=== PATIENT | male | born 1995 | race African-American/Black ===

== ENCOUNTER 2019-09-30 17:34 | Emergency (ER) | payer OTHER ==
--- NOTE | 2019-09-30 17:45 | PDOC ---
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 He notes he was playing with the knife and accidentally sliced his finger. Denies any substance use, did not take any med ication for pain, states he does have pain only when trying to bend the finger. Notes mild swelling, did not lose a significant amount of blood per his report, able to bend the finger but this causes some discomfort. He cannot recall the date of his last Tdap. Denies numbness, tingling, or weakness to the finger. Right hand dominant. Past History - Medical History Allergies/Adverse Reactions: Allergies Allergy/AdvReac Type Severity Reaction Status Date / Time No Known Allergies Allergy Verified 09/30/19 17:37 Home Medications: Ambulatory Orders Cephalexin Monohydrate [Keflex -] 500 mg PO BID #10 capsule 09/30/19 - Psycho-Social/Smoking History Smoking Status: No Smoking History: Never smoked Number of Cigarettes Smoked Daily: 0 Review of Systems - Review of Systems Able to Perform ROS?: Yes Comments:: 09/30/19 17:51 GEN: no fever, chills, generalized weakness, or malaise HEENT: no ear pain, eye pain, throat pain or swelling, nosebleed, vision change, or loose teeth SKIN: right index finger lacerations, otherwise no abrasions, or bruises CV: no chest pain, palpitations, or LOC RESP: no cough or SOB GI: no abdominal pain, nausea, vomiting, or black/bloody stool : no hematuria or flank pain/bruising MSK: no muscle weakness, muscle pain, joint pain, or joint swelling NECK/BACK: no neck pain, back pain, or trauma reported NEURO: no headache, seizure, numbness, tingling, focal weakness, or incontinence PSYCH: no suicidality, homicidality, or substance use *Physical Exam - Vital Signs Initial Vital Signs Temp Pulse Resp BP Pulse Ox 98.3 F 70 20 112/73 100 08/07/20 17:36 09/30/19 17:36 09/30/19 17:36 09/30/19 17:36 09/30/19 17:36 - Physical Exam 09/30/19 17:45 GENERAL: well-appearing, very tall, pleasant adult male POC, making jokes and in good humor, A/Ox4, no distress, answers questions appropriately, accompanied by significant other at bedside HEENT: PERRLA, EOMI, moist mucous membranes NECK/BACK: no midline ttp, no spinal step-off or deformity, no hematoma, full ROM, neck supple CARDIOVASCULAR: regular rate/rhythm, no MGR, strong peripheral pulses, capillary refill <2 seconds, extremities wwp, no edema LUNGS/RESPIRATORY: no respiratory distress, CTAB GI/ABDOMEN: symmetric [id number], normoactive BS, soft, no ttp, no midline pulsatile masses MSK/EXTREMITIES: bilateral hands with r/m/u nerve distributions intact both motor and sensory, 5/5 strength flexion and extension to right index finger, otherwise no muscle atrophy, no acute deformity SKIN: one 3 cm and one 2.7 cm laceration to the right radial index finger which are oblique in angle to the finger, no exposed tendon or ligament or sheath material, no obvious nv injury, no pulsating or oozing blood, cap refill <2 seconds bilaterally all five digits, skin is otherwise warm and dry, no pallor, no jaundice, no rash, no pathologic-appearing bruising, no skin breakdown, no cuts, no lesions NEUROLOGICAL: GCS 15, CN II-XII grossly intact, 5/5 strength proximally and distally, no facial droop Procedures - Laceration/Wound Repair Right Lateral Finger 2nd digit Wound Length: 5.0 to 7.5 cm Wound Explored: clean Wound's Depth, Shape: linear Irrigated w/ Saline: Yes Anesthesia: 1% Lidocaine Wound Repaired With: Sutures Suture Size/Type: 5:0 Layer Closure: No Sterile Dressing Applied: Yes Sling Applied: No Medical Decision Making - Medical Decision Making 09/30/19 17:57 Pt p/w lacerations to the right index finger. No e/o tendon, ligament, or bony injury. No obvious FB or debris. Last tDaP was ___ Initial Vital Signs Temp Pulse Resp BP Pulse Ox 98.3 F 70 20 112/73 100 09/30/19 17:36 09/30/19 17:36 09/30/19 17:36 09/30/19 17:36 09/30/19 17:36 DDX IBNLT: Most likely simple skin/soft tissue laceration, less likely any tendon/ligament involvement, bony involvement, larger blood vessel injury, retained FB, wound contamination with risk for infection, etc. W/U ordered: XR to r/o FB and bony involvement TX ordered: tDaP update, abx dose 500 mg Keflex Laceration numbed, cleaned, repaired without issue as noted in Procedures section. Hemostasis achieved, good approximation, Bacitracin applied and wound dressed, finger splint loosely applied. The Pts laceration has been repaired without issue, ppx given as indicated. They do not require abx for this laceration. E-Rx is sent to their pharmacy for abx and they will take the whole course as Rx. Workup is not concerning for emergency-level pathology at this time. The Pt is appropriate for discharge with close outpatient follow up. They are comfortable with this plan and will follow up here in the ED in 3days for wound check. Specific return precautions are discussed and they will come back to the ER if necessary Discharge - Discharge Information Problems reviewed: Yes Clinical Impression/Diagnosis: Finger laceration Qualifiers: Encounter type: initial encounter Finger: index finger Damage to nail status: without damage Foreign body presence: without foreign body Laterality: right Qualified Code(s): S61.210A - Laceration without foreign body of right index finger without damage to nail, initial encounter Condition: Stable Disposition: HOME - Admission No - Additional Discharge Information Prescriptions: Cephalexin Monohydrate [Keflex -] 500 mg PO BID #10 capsule - Follow up/Referral Referrals: [facility] [place] [facility] [Provider Group] - Patient Discharge Instructions Patient Printed Discharge Instructions: DI for Laceration Repair Additional Instructions: You were seen in the ER for lacerations to your right index finger. We did an exam, cleaned and repaired the laceration, and made sure your tetanus vaccination was up to date. We gave you the first dose of antibiotics here in the ER. After our assessment, we do not believe you are having a medical emergency at this time, and we believe you are safe to go home. Please read the information in this packet on how to care for your laceration. Keep the dressing on your wound for 24 hours and keep this dressing clean and dry. After 24 hours, you can take the dressing off and you can shower and get the wound wet, but do not scrub the wound and do not soak it in water. Do not go swimming or take a bath or submerge the wound in standing water. Put a thin layer of antibiotic ointment on the wound once in the morning and once in the evening. Please follow up with your primary care provider to have the sutures removed, or return here to the ER to have them removed. If you have any new or worsening symptoms, especially increasing pain and redness to the area or other signs of infection like fever, please come back to the ER at any time (24 hours a day). If you are having severe or life threatening symptoms, or symptoms that make it unsafe to drive or have someone drive you, please call 911. 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 Take this medication exactly as prescribed. If you do not take this, it puts you at higher risk of dangerous infection to the hand. Come back to the ER immediately for any signs of infection like worsening pain, pus drainage, worsening redness, fever, etc. Follow up with your PCP on Thursday to have a wound check, and again next (6 days from now) to see if the sutures can be removed. If for any reason you cannot follow up with your PCP, come back to the ER for the wound check on Thursday and the suture removal on . - Post Discharge Activity
[2019-09-30 17:57] VITALS: BP 112/73; PULSE 70; TEMP 98.3; BMI 23.0
[2019-09-30] MEDS ORDERED: DIPHTH,PERTUSS(ACELL),TET 0.5 ML DISP.SYRIN IM ONE ×2 (17:59→18:04)
[2019-09-30] MEDS ORDERED: CEPHALEXIN MONOHYDRATE 500 MG CAPSULE (UD) PO ONE (17:59)
[2019-09-30] MEDS ORDERED: CEPHALEXIN MONOHYDRATE 500 MG CAPSULE (UD) ONE (18:03)
[2019-09-30] MEDS ORDERED: SODIUM CHLORIDE 0.9% 500 ML INFUS.BAG IV ONE (18:35)
== END 2019-09-30 19:09 | disposition home or self-care (01) ==
LOC: FER 17:34
PROC: 0HQFXZZ Repair Right Hand Skin, External Approach (ICD-10-PCS; principal; 2019-09-30)
PROC: 3E0234Z Introduction of Serum, Toxoid and Vaccine into Muscle, Percutaneous Approach (ICD-10-PCS; 2019-09-30)
DX: S61.210A Laceration without foreign body of right index finger without damage to nail, initial encounter (principal)
CPT/HCPCS: 90715; 99284-25

== ENCOUNTER 2019-10-03 10:50 | Emergency (ER) | payer OTHER ==
[2019-10-03 11:05] VITALS: BP 107/60; PULSE 85; TEMP 98.2; BMI 23.0
--- NOTE | 2019-10-03 11:05 | PDOC ---
Suture Removal/Wound Check HPI - History of Present Illness Chief Complaint: Suture/Staple Removal(Here) Stated Complaint: SUTURE REMOVAL Time Seen by Provider: 10/03/19 10:53 History Source: Yes: Patient Exam Limitations: Yes: No Limitations Treated at: [facility] ED Date of Last ED visit: 09/30/19 - Previous ED Treatment Type of procedure performed on last visit: Yes: Laceration Repair - Onset of Previous Treatment Comment:: 24 yo M presents 3 days s/p laceration repair of R index finger. Has been dressing it with gauze, wearing a splint. However, he fell after the sutures were placed and one of them came out. He also was concerned that he saw yellow discharge on his gauze. Denies any new swelling, redness, fever, rash. It was swollen at time of repair, but has been improving. Taking abx as prescribed. Past History - Medical History Allergies/Adverse Reactions: Allergies Allergy/AdvReac Type Severity Reaction Status Date / Time No Known Allergies Allergy Verified 09/30/19 17:37 Home Medications: Ambulatory Orders Cephalexin Monohydrate [Keflex -] 500 mg PO BID #10 capsule 09/30/19 COPD: No - Psycho-Social/Smoking History Smoking Status: No Smoking History: Never smoked Have you smoked in the past 12 months: No Number of Cigarettes Smoked Daily: 0 *Review of Systems - Review of Systems Able to Perform ROS?: Yes GENERAL/CONSTITUTIONAL: No fever or chills. No weakness. MUSCULOSKELETAL: No joint or muscle swelling or pain. No neck or back pain. SKIN: No rash. *Physical Exam - Physical Exam GENERAL: Awake, alert, and fully oriented, in no acute distress HEAD: No signs of trauma EXTREMITIES: R index finger with healing laceration, dry, no drainage. Small opening in the wound c/w missing suture, healing. Remainder of extremities with normal range of motion, no edema. No clubbing or cyanosis. No cords, erythema, or tenderness NEUROLOGICAL: Cranial nerves II through XII grossly intact. Normal speech, normal gait. Motor and sensation intact SKIN: Warm, dry, normal turgor, no rashes or lesions noted. Medical Decision Making - Medical Decision Making Patient brought the gauze with him to ED, drainage appears consistent with normal wound healing. No signs of infection. Return instructions given. Recommended that he keep a thin gauze dressing and the splint in place to allow it to heal as it has been. Discharge - Discharge Information Problems reviewed: Yes Clinical Impression/Diagnosis: Visit for wound check Condition: Stable Disposition: HOME - Follow up/Referral - Patient Discharge Instructions Patient Printed Discharge Instructions: Laceration Repair Additional Instructions: Please return between 10/10-10/12 to have your sutures removed. If you have swelling, redness, fever, drainage of pus, or any other concerning symptoms, return to the ER immediately. - Post Discharge Activity
== END 2019-10-03 11:24 | disposition home or self-care (01) ==
LOC: FER 10:50
DX: Z48.02 Encounter for removal of sutures (principal)
CPT/HCPCS: 99281-25

== ENCOUNTER 2019-10-10 17:05 | Emergency (ER) | payer OTHER ==
[2019-10-10 17:08] VITALS: BMI 23.8
[2019-10-10 17:13] VITALS: BP 108/69; PULSE 73; TEMP 98.3
--- NOTE | 2019-10-10 17:46 | PDOC ---
Documentation entered by Tomer Bettencourt SCRIBE, acting as scribe for Donya Bhardwaj MD. Donya Bhardwaj MD: This documentation has been prepared by the scribe, Tomer Bettencourt SCRIBE, under my direction and personally reviewed by me in its entirety. I confirm that the documentation accurately reflects all work, treatment, procedures, and medical decision making performed by me. History of Present Illness - General Chief Complaint: Suture/Staple Removal(Here) Stated Complaint: SUTURE REMOVAL History Source: Patient Exam Limitations: No Limitations - History of Present Illness Initial Comments: 10/10/19 17:32 The patient is a 24 year old male with a significant past medical history of ADD (not currently medicated) who presents to the emergency department to have stitches removed from his right index finger. The patient was here for stitches 09/30/2019 for evaluation of right index finger lacerations s/p accidentally cutting himself with a Sweet[employer] Knife while playing with it. He came to the ED 10/03/2019 because a stitch came out after he fell and he was concerned that he saw yellow discharge on his gauze. He also came to the ED 10/06/2019 because he thought his finger was infected. The patient is currently asymptomatic. The patient denies chest/abdominal/back pain, cough, and shortness of breath. Denies fever, chills, nausea, vomiting, and/or any GI symptoms. Denies any symptoms. Denies any other symptoms. Allergies: NKDA Social Hx: The patient reports smoking marijuana and occasionally consuming alcohol. Past History - Medical History Allergies/Adverse Reactions: Allergies Allergy/AdvReac Type Severity Reaction Status Date / Time No Known Allergies Allergy Verified 10/10/19 17:05 Home Medications: Ambulatory Orders NK [No Known Home Medication] 10/06/19 COPD: No - Psycho-Social/Smoking History Smoking Status: No Smoking History: Never smoked Have you smoked in the past 12 months: No Number of Cigarettes Smoked Daily: 0 - Substance Abuse Hx (Audit-C & DAST Scrn) How often the patient has a drink containing alcohol: Monthly or less Number of drinks the patient has on a typical day: 1 or 2 How often the patient has six or more drinks on one occasion: Never Score: In Men: 4 or > Positive; In Women: 3 or > Positive: 1 Screen Result (Pos requires Nsg. Audit-10AR): Negative In the last yr the pt used illegal drug/Rx for NonMed reason: Yes Score: Yes response is considered Positive: 1 Screen Result (Positive result requires Nsg. DAST-10): Positive Review of Systems - Review of Systems Able to Perform ROS?: Yes Comments:: 10/10/19 17:34 GENERAL/CONSTITUTIONAL: No fever or chills. No weakness. HEAD, EYES, EARS, NOSE AND THROAT: No change in vision. No ear pain or discharge. No sore throat. CARDIOVASCULAR: No chest pain or shortness of breath. RESPIRATORY: No cough, wheezing, or hemoptysis. GASTROINTESTINAL: No nausea, vomiting, diarrhea or constipation. GENITOURINARY: No dysuria, frequency, or change in urination. MUSCULOSKELETAL: No joint or muscle swelling or pain. No neck or back pain. SKIN: No rash NEUROLOGIC: No headache, vertigo, loss of consciousness, or change in strength/sensation. ENDOCRINE: No increased thirst. No abnormal weight change. HEMATOLOGIC/LYMPHATIC: No anemia, easy bleeding, or history of blood clots. ALLERGIC/IMMUNOLOGIC: No hives or skin allergy. All Other Systems: Reviewed and Negative *Physical Exam - Vital Signs Last Vital Signs Temp Pulse Resp BP Pulse Ox 98.3 F 73 16 108/69 100 10/10/19 17:05 10/10/19 17:05 10/10/19 17:05 10/10/19 17:05 10/10/19 17:05 - Physical Exam 10/10/19 17:24 GENERAL: Awake, alert, and fully oriented, in no acute distress HEAD: No signs of trauma EYES: PERRLA, EOMI, sclera anicteric, conjunctiva clear ENT: Auricles normal inspection, hearing grossly normal, nares patent, oropharynx clear without exudates. Moist mucosa NECK: Normal ROM, supple EXTREMITIES: Normal range of motion, no edema. No clubbing or cyanosis. wound on index finger well healed without drainage, erythema or increased warmth, no ttp NEUROLOGICAL: Cranial nerves II through XII grossly intact. Normal speech, normal gait Medical Decision Making - Medical Decision Making 10/10/19 17:44 24 yo M here for suture removal, wound healed, no signs concerning for infection. Sutures removed without complications. Patient tolerated procedure well. Plan: -d/c with return precautions, recommend cocoa butter to area and avoid sun exposure to decrease scarring, f/u PMD as needed This clinical encounter is taking place during a federal and state health care emergency attributable to the novel Vincent Virus pandemic. The [employer] of the Department of Health and Human Services has declared, pursuant to the Public Health Service Act 319F-3 (42 U.S.C. 247d-6d), that a covered persons activities related to medical countermeasures against COVID-19 will be immune from liability under Federal and State law. Discharge - Discharge Information Problems reviewed: Yes Clinical Impression/Diagnosis: Visit for suture removal Condition: Stable Disposition: HOME - Admission No - Follow up/Referral - Patient Discharge Instructions Patient Printed Discharge Instructions: DI for Suture Removal Additional Instructions: Return to the ED for new or worsening symptoms. You should follow up with your PMD as needed. - Post Discharge Activity
== END 2019-10-10 18:02 | disposition home or self-care (01) ==
LOC: FER 17:05
DX: Z48.02 Encounter for removal of sutures (principal)
CPT/HCPCS: 99281-25

== ENCOUNTER 2020-02-12 19:35 | Emergency (ER) | payer OTHER ==
[2020-02-12 19:44] VITALS: BP 117/63; PULSE 112; TEMP 101.8; BMI 22.4
[2020-02-12] MEDS ORDERED: ACETAMINOPHEN 325 MG TABLET (FP) PO ONE (21:01)
[2020-02-12] MEDS ORDERED: ACETAMINOPHEN 325 MG TABLET (FP) ONE (21:03)
[2020-02-12 21:31] LABS: THROAT:GRP A STREP ANTIGEN Negative (Negative)
== END 2020-02-12 22:03 | disposition home or self-care (01) ==
LOC: FER 19:35
DX: R50.9 Fever, unspecified (principal); J02.9 Acute pharyngitis, unspecified; R11.2 Nausea with vomiting, unspecified
CPT/HCPCS: 87070; 87077; 87880; 99283-25; C9803; U0003

== ENCOUNTER 2020-12-03 22:28 | Emergency (ER) | payer OTHER ==
[2020-12-03 22:34] VITALS: BP 117/70; PULSE 102; TEMP 98.3; BMI 22.1
== END 2020-12-03 23:03 | disposition home or self-care (01) ==
LOC: FER 22:28
PROC: 0HQFXZZ Repair Right Hand Skin, External Approach (ICD-10-PCS; principal; 2020-12-03)
DX: S61.202A Unspecified open wound of right middle finger without damage to nail, initial encounter (principal); W26.0XXA Contact with knife, initial encounter; Y93.G3 Activity, cooking and baking
CPT/HCPCS: 12001-25; 99282-25

== ENCOUNTER 2021-01-20 22:07 | Emergency (ER) | payer OTHER ==
[2021-01-20 22:22] VITALS: BP 124/75; PULSE 104; TEMP 98; BMI 23.0
[2021-01-20] MEDS ORDERED: CYCLOBENZAPRINE HCL 10 MG TABLET (FP) ONE (22:40)
[2021-01-20] MEDS ORDERED: KETOROLAC TROMETHAMINE 60 MG/2 ML VIAL ONE (22:40)
[2021-01-20] MEDS ORDERED: CYCLOBENZAPRINE HCL 10 MG TABLET (FP) PO ONE (22:41)
[2021-01-20] MEDS ORDERED: KETOROLAC TROMETHAMINE 60 MG/2 ML VIAL IM ONE (22:41)
== END 2021-01-20 22:58 | disposition home or self-care (01) ==
LOC: FER 22:07
PROC: 3E0233Z Introduction of Anti-inflammatory into Muscle, Percutaneous Approach (ICD-10-PCS; principal; 2021-01-20)
DX: M62.830 Muscle spasm of back (principal)
CPT/HCPCS: 99284-25

== ENCOUNTER 2022-01-21 09:52 | Emergency (ER) | payer OTHER ==
[2022-01-21 10:01] VITALS: BP 99/59; PULSE 72; RESP 16; TEMP 98.2; BMI 24.4
== END 2022-01-21 10:56 | disposition home or self-care (01) ==
LOC: FER 09:52
DX: H61.23 Impacted cerumen, bilateral (principal)
CPT/HCPCS: 99282-25

== ENCOUNTER 2023-06-23 19:52 | Emergency (ER) | payer OTHER ==
[2023-06-23 20:24] VITALS: BP 126/73; PULSE 85; RESP 18; TEMP 99; BMI 24.3
== END 2023-06-23 22:59 | disposition home or self-care (01) ==
LOC: FER 19:52
DX: R51.9 Headache, unspecified (principal); S00.83XA Contusion of other part of head, initial encounter; S03.2XXA Dislocation of tooth, initial encounter; W50.0XXA Accidental hit or strike by another person, initial encounter
CPT/HCPCS: 70450-TC; 70480-TC; 99284-25

== ENCOUNTER 2024-04-08 17:50 | Emergency (ER) | payer OTHER ==
[2024-04-08 18:19] VITALS: BP 122/64; PULSE 73; RESP 18; TEMP 98.8; BMI 23.0
[2024-04-08] MEDS ORDERED: MECLIZINE HCL 25 MG TABLET (FP) ONE (19:25)
[2024-04-08] MEDS: SODIUM CHLORIDE 0.9% 1000 ML INFUS.BAG IV ONE (19:31)
[2024-04-08] MEDS: MECLIZINE HCL 25 MG TABLET (FP) PO ONE (19:31)
[2024-04-08 19:35] LABS: HEMATOCRIT 41.5 % (35.4-49); HEMOGLOBIN 14.3 G/dL (11.7-16.9); MCH 29.6 pg (25.7-33.7); MCHC 34.6 g/dl (32.0-35.9); MEAN CELL VOLUME 85.6 fl (80-96); MEAN PLT VOLUME 8.9 fl (7.5-11.1); PLATELET COUNT 257.4 10^3/uL (134-434); RBC 4.85 10^6/uL (4.00-5.60); RDW 13.1 % (11.9-15.9); WHITE BLOOD COUNT 10.8 10^3/uL (4.0-10.8)
[2024-04-08 19:49] LABS: PLATELET ESTIMATE ADEQUATE
[2024-04-08 19:55] LABS: ALBUMIN 4.5 g/dl (3.4-5.0); ALK PHOS 52 U/L (45-117); ANION GAP 7 mmol/L (4-13); BILIRUBIN,TOTAL 0.7 mg/dl (0.2-1); CALCIUM 9.7 mg/dl (8.5-10.1); CHLORIDE 102 mmol/L (98-107); CO2 29 mmol/L (21-32); GLUCOSE,RANDOM 81 mg/dl (74-106); POTASSIUM 4.4 mmol/L (3.5-5.1); SGOT/AST 19 U/L (15-37); SGPT/ALT 12 U/L (7-52); SODIUM 138 mmol/L (136-145); TOT PROT 7.2 g/dl (6.4-8.2)
== END 2024-04-08 21:22 | disposition home or self-care (01) ==
LOC: FER 17:50
DX: R42 Dizziness and giddiness (principal); H61.22 Impacted cerumen, left ear; R05.9 Cough, unspecified; R09.81 Nasal congestion; Z20.822 Contact with and (suspected) exposure to COVID-19
CPT/HCPCS: 0241U-QW; 36415; 80053; 85027; 99284-25